=== PATIENT | female | born 1995 | race Caucasian/White ===

== ENCOUNTER 2024-05-13 19:23 | Emergency (ER) | payer OTHER, SELFPAY ==
[2024-05-13 19:26] VITALS: BP 148/93
[2024-05-13 19:44] VITALS: BMI 27.1
[2024-05-13 20:12] VITALS: BP 119/83
[2024-05-13 20:14] LABS: % Basophils 0.5 % (0-2); % Eosinophils 3.5 % (0-6); % Immature Granulocytes 0.2 % (0-0.5); % Lymphocytes 29.1 % (20.5-51.1); % Monocytes 5.7 % (1.7-9.3); Absolute Eosinophils 0.3 10^3/uL (0-0.7); Absolute Lymphocytes 2.6 10^3/uL (1.2-3.4); Absolute Monocytes 0.5 10^3/uL (0.1-0.6); Absolute Neutrophils 5.4 10^3/uL (1.4-6.5); Hematocrit 36.4 % (37.0-47.0); Hemoglobin 12.7 g/dL (12.0-16.0); Mean Corp Hgb Conc. 34.9 g/dL (33.0-37.0); Mean Corpuscular Hgb 31.4 pg (27.0-31.0); Mean Corpuscular Volume 89.9 fL (81.0-99.0); Nucleated Red Blood Cells % 0 %; Platelet Count 278 10^3/uL (130-400); Red Blood Cell Count 4.05 10^6/uL (4.20-5.40); Red Cell Dist. Width 11.8 % (11.5-14.5); White Blood Cell Count 8.8 10^3/uL (4.8-10.8)
[2024-05-13 20:40] LABS: ALT (SGPT) 20 U/L (0-35); AST (SGOT) 21 U/L (14-36); Albumin 4.4 g/dl (3.5-5.0); Alkaline Phosphatase 74 U/L (38-126); Blood Urea Nitrogen 17 mg/dl (7-17); Calcium 9.5 mg/dl (8.4-10.2); Carbon Dioxide 22 mmol/L (22-30); Chloride 103 mmol/L (98-107); Estimated Creatinine Clearance 109 ml/min; Glucose 75 mg/dl (70-99); Lipase 147 U/L (23-300); Potassium 4.3 mmol/L (3.5-5.1); Sodium 137 mmol/L (135-145); Total Bilirubin 0.2 mg/dl (0.2-1.3); Total Protein 6.8 g/dl (6.3-8.2); eGFR > 60.00
--- NOTE | 2024-05-13 20:52 | ED.GENMED ---
History of Present Illness
<Desmond Foster MD, Resident - Last Filed: 05/13/24 22:20>
General
Chief Complaint: Allergic Reaction
Time Seen by Provider: 05/13/24 19:35
History of Present Illness
History of Present Illness:
28-year-old female with a history of eczema complaining of itching, redness, and swelling of both eyes starting about a week ago. She also mentions swelling of the lip on the hands and she said she could not put her rings anymore because of the
swelling. Also mentions crampy abdominal pain and worsening of reflux. Denies fever denies nausea vomiting denies shortness of breath/wheezing. Does not have trouble swallowing. Did not try any food that she had not had before during the past
week. No seafood. No history of angioedema in the family. Did not spend time outdoors this previous week and does not think she got stung. started Prozac 6 weeks ago but has taken this medication before without any reactions.Denies wearing
contact lenses.
Mentions she has seasonal allergy.
Past History
<Desmond Foster MD, Resident - Last Filed: 05/13/24 22:20>
Past History
ED Past Medical History: None
ED Past Surgical History: None
Social History
Tobacco: Smoker
Alcohol: Occasional
Drug: Marijuana
Review of Systems
<Desmond Foster MD, Resident - Last Filed: 05/13/24 22:20>
Review of Systems
All Other Systems: ROS reviewed and negative except as documented in HPI and ROS
Phy Exam
<Desmond Foster MD, Resident - Last Filed: 05/13/24 22:20>
General Physical Exam
General Presentation: mild distress
General Mental: alert
General Hydration: appears well hydrated
ENT Exam
ENT Exam: pharynx normal and swallowing well
Eye Exam
Eye Exam: conjunctiva normal
Eye Exam General: EOM intact: bilateral
Conjunctival Changes: bilateral: none
Eyelid Exam: red and inflamed: Bilateral and edematous: Bilateral
Cardiovascular Exam
Cardiovascular Exam: regular rate/rhythm, no JVD and normal peripheral pulses
Pulmonary Exam
Pulmonary Exam: lungs clear, no respiratory distress, no crackles, no stridor and no wheezing
Gastrointestinal Exam
Gastrointestinal Exam: normal bowel sounds, non tender, soft, no organomegaly and non distended
Neurological Exam
Neurological Exam: alert, oriented x3, CN II-XII intact, no motor deficits and speech normal
Musculoskeletal Exam
Musculoskeletal Exam: full ROM and edema (Bilateral nonpitting 1+ edema of distal upper extremity up to wrist)
Skin Exam
Skin Exam: normal color, warm/dry, no rash and no petechia
Course
<Desmond Foster MD, Resident - Last Filed: 05/13/24 22:20>
Orders/Labs/Results
Orders:
Orders
05/13/24 20:04
Complete Blood Count/With Diff Urgent
Comprehensive Metabolic Panel Urgent
Lipase Urgent
Abnormal Lab Results
05/13/24
20:04
RBC 4.05 L 10^6/uL
(4.20-5.40)
Hct 36.4 L %
(37.0-47.0)
MCH 31.4 H pg
(27.0-31.0)
05/13/24 20:04
05/13/24 20:04
Vital Signs
Initial and Last Documented VS:
Initial Vital Signs
Temp Pulse Resp BP Pulse Ox
98.5 F 94 18 148/93 98
05/13/24 19:26 05/13/24 19:26 05/13/24 19:26 05/13/24 19:26 05/13/24 19:26
Last Documented Vital Signs
Temp Pulse Resp BP Pulse Ox
98.2 F 82 16 120/81 100
05/13/24 21:48 05/13/24 21:48 05/13/24 21:48 05/13/24 21:48 05/13/24 21:48
<Bam Berry MD - Last Filed: 05/13/24 22:10>
Orders/Labs/Results
Orders:
Orders
05/13/24 20:04
Complete Blood Count/With Diff Urgent
Comprehensive Metabolic Panel Urgent
Lipase Urgent
Abnormal Lab Results
05/13/24
20:04
RBC 4.05 L 10^6/uL
(4.20-5.40)
Hct 36.4 L %
(37.0-47.0)
MCH 31.4 H pg
(27.0-31.0)
05/13/24 20:04
05/13/24 20:04
Vital Signs
Initial and Last Documented VS:
Initial Vital Signs
Temp Pulse Resp BP Pulse Ox
98.5 F 94 18 148/93 98
05/13/24 19:26 05/13/24 19:26 05/13/24 19:26 05/13/24 19:26 05/13/24 19:26
Last Documented Vital Signs
Temp Pulse Resp BP Pulse Ox
98.2 F 82 16 120/81 100
05/13/24 21:48 05/13/24 21:48 05/13/24 21:48 05/13/24 21:48 05/13/24 21:48
<Desmond Foster MD, Resident - Last Filed: 05/13/24 22:20>
MDM/Problems Addressed
Differential Diagnosis Includes:
Allergic reaction to food/ medications, seasonal allergy, angioedema, autoimmune disease
<Desmond Foster MD, Resident - Last Filed: 05/13/24 22:20>
*Critical Care Note
Total Time (30-74mins, 75-104mins- exclusive of procedures): Not Applicable
ED Attending Note
<Desmond Foster MD, Resident - Last Filed: 05/13/24 22:20>
-
Portions of this chart may have been created with voice recognition software.� Occasional wrong word or��sound alike� substitutions may have occurred due to the inherent limitations of voice recognition software.
<Bam Berry MD - Last Filed: 05/13/24 22:10>
ED Attending Note
Patient seen and examined by attending physician: Yes
ED Attending Note:
Patient with history of eczema, presents to ED secondary to persistent bilateral eye redness and itching sensation over the past 1 month, as well as lower lip swelling. In addition, over the past 2 weeks, she has noticed that with every meals, her
reflux sensation appears to be more intense. Denies fever or chills. Denies blurred vision. Denies trauma. Denies headache. Denies nausea or vomiting. Denies recent change in medications or diet. Denies previous history of similar symptoms.
Patient has been applying Aquaphor ointment, as well as Benadryl, with mild improvement in symptoms. Difficulty with swallowing. Denies shortness of breath. Denies coughing. Denies chest pain. Denies rash anywhere else in the body.
Physical Exam
General: no apparent distress, not acutely ill. afebrile
Head: nc/at. eomi. normal conjunctiva
Neck: supple. normal range of motion. normal posterior pharynx.
Neuro: alert and oriented. no focal neurological deficits
Skin: b/l periorbital erythema with mild facial/lip swelling.
Psychiatric: well kept. interactive and cooperative
Extremities: no edema. no calf tenderness.
History and exam concerning for likely allergic rhinitis with associated periorbital erythema. There is no respiratory compromise nor throat swelling. Abdominal discomfort/reflux, potentially related to similar allergic component. Discussed
treatment options with the patient, including tapered dose of prednisone as well as Benadryl and use of Zyrtec versus Zunilda as an outpatient. Patient also advised to follow-up with dermatology and/or transformation specialist for reevaluation.
Discussed possibility of other etiology behind her symptoms, including potential autoimmune disease, which will need further evaluation as an outpatient. Patient expresses understanding at time of discharge.
Discharge Plan
Departure
Patient Disposition: Home (Routine Discharge)
Date of Disposition: 05/13/24
Time of Disposition: :24
Patient with high blood pressure during this ER visit?: No
Condition: Fair
Discharge Problem:
Edema of bilateral orbit, lip swelling, Bilateral hand swelling
Prescriptions:
New
prednisone 10 mg Tablet
10 mg PO DIRECTED Qty: 60 0RF
Referrals:
Chevy Cervantes MD [Family Provider] -
Activity Restrictions/Additional Instructions:
You presented with redness and swelling of bilateral orbits , as well as edema of lower lip and bilateral hands. This may be an allergic reaction but autoimmune disease cannot be ruled out.
You have been prescribed steroids (prednisone 10 mg) to control your symptoms. Please take 6 tablets for 3 days, then 5 tablets next 3 days, then 4 tablets next 3 days, then 3 tablets next 3 days, then 2 tablets next 3 days.
Also, continue taking Zunilda and Pepcid as needed.
Interventions
Interventions:
*Risk Screen - Suicide Last Done: 05/13/24 19:26
*General Assessment Last Done: 05/13/24 19:26
*Neglect/Abuse Screening Last Done: 05/13/24 19:26
ED- Fall Risk Assessment Last Done: 05/13/24 21:00
*ED COVID-19 Vaccine History Last Done: 05/13/24 19:26
*Nursing Disposition Last Done: 05/13/24 21:48
ED- Cardiac Assessment Last Done: 05/13/24 21:00
ED- Pulmonary Assessment Last Done: 05/13/24 21:00
ED-Skin Assessment Last Done: 05/13/24 21:00
Discharge Date and Time
Discharge Date/Time: 05/13/24 21:50
Print Language: KOREAN
[2024-05-13 21:48] VITALS: BP 120/81
== END 2024-05-13 21:50 | disposition home or self-care (01) ==
LOC: EMR 19:23
PROVIDERS: Emergency Medicine; EMERGENCY PHYSICIAN Emergency Medicine; FAMILY PHYSICIAN Internal Medicine Rheumatology
DX: H05.223 Edema of bilateral orbit (principal); R22.33 Localized swelling, mass and lump, upper limb, bilateral; L30.9 Dermatitis, unspecified; K21.9 Gastro-esophageal reflux disease without esophagitis; F17.200 Nicotine dependence, unspecified, uncomplicated
CPT/HCPCS: 99283; 80053; 83690; 85025